=== PATIENT | male | born 1950 | race Caucasian/White ===

== ENCOUNTER → 2017-05-15 | Outpatient (CLI) | payer BC ==
[~2017-05-15] MED LIST: REGADENOSON 0.4 MG/5 ML SYRINGE ONE; THYR60TA PO
== END | disposition home or self-care (01) ==
LOC: CVU 07:18
PROVIDERS: ATTEND Internal Medicine Cardiovascular Disease
DX: I21.09 ST elevation (STEMI) myocardial infarction involving other coronary artery of anterior wall (principal); I21.19 ST elevation (STEMI) myocardial infarction involving other coronary artery of inferior wall; I25.10 Atherosclerotic heart disease of native coronary artery without angina pectoris; I25.89 Other forms of chronic ischemic heart disease
CPT/HCPCS: 78452; 93017; 93306; A9502; J2785

== ENCOUNTER → 2019-05-03 | Outpatient (CLI) | payer BC | END | disposition home or self-care (01) | LOC: CFH 12:17 | PROVIDERS: ATTEND Internal Medicine Cardiovascular Disease | DX: I25.10 Atherosclerotic heart disease of native coronary artery without angina pectoris (principal); R29.898 Other symptoms and signs involving the musculoskeletal system | CPT/HCPCS: 78452; 93017; A9502; J2785 ==

== ENCOUNTER 2019-05-22 00:01 | Observation (INO) | payer BC ==
[~2019-05-22] VITALS: Ht 177.8 cm; Wt 97.8 kg
[~2019-05-22 00:01] MED LIST changes: -REGADENOSON 0.4 MG/5 ML SYRINGE ONE
--- NOTE | 2019-05-22 00:12 | NUR ---
PT PROVIDED UA CUP, REFUSED UA AT THIS TIME.
[2019-05-22 00:23] LABS: BASOPHILS # (AUTO) 0.03 x10^3/uL (0-0.1); BASOPHILS % (AUTO) 1 % (0-1); EOSINOPHILS # (AUTO) 0.09 x10^3/uL (0-0.4); EOSINOPHILS % (AUTO) 1 % (1-7); LYMPHOCYTES # (AUTO) 1.47 x10^3/uL (1-3.4); LYMPHOCYTES % (AUTO) 23 % (22-44); MD NO; MEAN CORPUSCULAR HEMOGLOBIN 33.2 pg (27.5-34.5); MEAN CORPUSCULAR HGB CONC 33.7 g/dL (33.2-36.2); MEAN CORPUSCULAR VOLUME 98.5 fL (81-97); MEAN PLATELET VOLUME 7.8 fL (7.4-10.4); MONOCYTES # (AUTO) 0.66 x10^3/uL (0.2-0.8); MONOCYTES % (AUTO) 10 % (2-9); NEUTROPHILS # (AUTO) 4.21 x10^3/uL (1.8-6.8); NEUTROPHILS % (AUTO) 65 % (42-75); PLATELET COUNT 237 x10^3/uL (130-400); RED BLOOD COUNT 3.94 x10^6/uL (4.38-5.82); RED CELL DISTRIBUTION WIDTH 14.4 % (9.4-14.8)
[2019-05-22 00:34] LABS: ANION GAP 7 mmol/L (5-15); CALCIUM 8.6 mg/dL (8.5-10.1); CHLORIDE 109 mmol/L (98-107); CREATININE 1.38 mg/dL (0.7-1.3)
--- NOTE | 2019-05-22 00:34 | NUR ---
BREAK RN: REPORT GIVEN FROM JORDEN FOR BREAK. PT RESTING IN ROOM. TECH IN ROOM DOING EKG. VS STABLE. CMM INSPECTOR ON. SINUS YASSINE NOTED. CALL LIGHT IN PLACE. WILL CONTINUE TO MONITOR.
[2019-05-22 00:35] LABS: ALANINE AMINOTRANSFERASE 73 U/L (12-78); ALBUMIN 3.3 g/dL (3.4-5.0)
[2019-05-22 00:39] LABS: ALKALINE PHOSPHATASE 107 U/L (45-117); BILIRUBIN,TOTAL 0.5 mg/dL (0.2-1.0); TOTAL PROTEIN 6.8 g/dL (6.4-8.2); TROPONIN I < 0.015 ng/mL (0.000-0.045)
[2019-05-22] MEDS ORDERED: MORPHINE SULFATE 4 MG/ML, 1ML ONE (00:59)
[2019-05-22] MEDS ORDERED: MORPHINE SULFATE 4 MG/ML, 1ML IVPush PRN ×2 (01:00→02:00)
--- NOTE | 2019-05-22 01:14 | NUR ---
REPORT GIVEN TO NICK LEONARDO
[2019-05-22] MEDS ORDERED: ASPIRIN 81 MG TABLET CHEW ONE (01:54)
[2019-05-22] MEDS ORDERED: ACETAMINOPHEN 325 MG TABLET PO PRN (02:00)
[2019-05-22] MEDS ORDERED: ASPIRIN 81 MG TABLET CHEW PO ONE (02:00)
[2019-05-22] MEDS ORDERED: OXYcodone IR 5MG TABLET PO PRN (02:00)
[2019-05-22] MEDS ORDERED: LABETALOL 5MG/ML, 20ML IVPush PRN (02:00)
[2019-05-22] MEDS ORDERED: BISACODYL 10 MG SUPP PR PRN (02:00)
[2019-05-22] MEDS ORDERED: POLYETHYLENE GLYCOL 17 GM PACKET PO PRN (02:00)
[2019-05-22] MEDS ORDERED: ENALAPRILAT 1.25 MG/ML, 2ML IVPush PRN (02:00)
[2019-05-22] MEDS ORDERED: ONDANSETRON 2MG/ML, 2ML IVPush PRN (02:00)
[2019-05-22 02:44] VITALS: BP 165/93
[2019-05-22] MEDS: SIMETHICONE 80 MG CHEW TAB PO SCH ×5 (03:13→20:16)
[2019-05-22] MEDS: ENOXAPARIN 40 MG/0.4 ML SQ SCH (03:13)
[2019-05-22 03:50] LABS: MICROSCOPIC INDICATED
[2019-05-22 03:58] LABS: CULTURE INDICATED? NO
[2019-05-22 06:12] LABS: TROPONIN I < 0.015 ng/mL (0.000-0.045)
[2019-05-22 07:09] VITALS: BP 156/94
[2019-05-22] MEDS: THYROID 30 MG TABLET PO SCH (08:22)
[2019-05-22] MEDS: PANTOPROZOLE 40MG TABLET PO SCH (08:22)
[2019-05-22] MEDS: SENNA/DOCUSATE TABLET PO SCH (08:23)
[2019-05-22] MEDS ORDERED: THYROID 30 MG TABLET PO ONE (08:30)
[2019-05-22] MEDS: SODIUM CHLORIDE 0.9% 1,000 ML IV SCH (11:39)
[2019-05-22 13:07] VITALS: BP 153/84
[2019-05-22 20:17] VITALS: BP 159/88
[2019-05-23] MEDS: SODIUM CHLORIDE 0.9% 1,000 ML IV SCH (00:48)
[2019-05-23 00:51] VITALS: BP 129/81
[2019-05-23] MEDS: ENOXAPARIN 40 MG/0.4 ML SQ SCH (02:31)
[2019-05-23 05:09] LABS: BASOPHILS # (AUTO) 0.03 x10^3/uL (0-0.1); BASOPHILS % (AUTO) 1 % (0-1); EOSINOPHILS # (AUTO) 0.22 x10^3/uL (0-0.4); EOSINOPHILS % (AUTO) 5 % (1-7); LYMPHOCYTES # (AUTO) 1.91 x10^3/uL (1-3.4); LYMPHOCYTES % (AUTO) 43 % (22-44); MD NO; MEAN CORPUSCULAR HEMOGLOBIN 32.9 pg (27.5-34.5); MEAN CORPUSCULAR HGB CONC 33.4 g/dL (33.2-36.2); MEAN CORPUSCULAR VOLUME 98.6 fL (81-97); MEAN PLATELET VOLUME 8.1 fL (7.4-10.4); MONOCYTES % (AUTO) 9 % (2-9); NEUTROPHILS # (AUTO) 1.85 x10^3/uL (1.8-6.8); NEUTROPHILS % (AUTO) 42 % (42-75); PLATELET COUNT 219 x10^3/uL (130-400); RED BLOOD COUNT 4.09 x10^6/uL (4.38-5.82); RED CELL DISTRIBUTION WIDTH 14.7 % (9.4-14.8)
[2019-05-23 05:19] LABS: CHLORIDE 111 mmol/L (98-107)
[2019-05-23 05:32] LABS: ALANINE AMINOTRANSFERASE 102 U/L (12-78); ALBUMIN 3.2 g/dL (3.4-5.0); ALKALINE PHOSPHATASE 121 U/L (45-117); ANION GAP 5 mmol/L (5-15); BILIRUBIN,TOTAL 0.6 mg/dL (0.2-1.0); CALCIUM 8.5 mg/dL (8.5-10.1); CREATININE 1.23 mg/dL (0.7-1.3); TOTAL PROTEIN 6.6 g/dL (6.4-8.2)
[2019-05-23 06:53] VITALS: BP 150/84
[2019-05-23] MEDS: PANTOPROZOLE 40MG TABLET PO SCH (07:30)
[2019-05-23] MEDS: THYROID 30 MG TABLET PO SCH (08:16)
[2019-05-23] MEDS: SIMETHICONE 80 MG CHEW TAB PO SCH ×2 (08:16→11:00)
[2019-05-23] MEDS: SENNA/DOCUSATE TABLET PO SCH (08:17)
[2019-05-23] MEDS ORDERED: NITROGLYCERIN 0.4 MG/SPRAY SL PRN (10:00)
[2019-05-23] MEDS ORDERED: MAALOX/HYOSCYAMINE/LIDOCAINE 45 ML BTL PO ONE (10:00)
[2019-05-23] MEDS ORDERED: ACETAMINOPHEN 325 MG TABLET PO PRN (10:00)
[2019-05-23] MEDS ORDERED: ASPIRIN 325 MG TABLET PO SCH (10:00)
[2019-05-23] MEDS ORDERED: SODIUM CHLORIDE 0.9% 1,000 ML IV SCH (11:30)
[2019-05-23 12:31] VITALS: BP 161/93
[2019-05-23] MEDS ORDERED: SIME80TA16 PO (14:08)
[2019-05-23] MEDS ORDERED: NITR0.4T41 SL (14:08)
[2019-05-23] MEDS ORDERED: ASPI81TA45 PO (14:08)
[2019-05-23] MEDS ORDERED: ATOR40TA78 PO (14:08)
[2019-05-23] MEDS ORDERED: ATORVASTATIN 40 MG TABLET PO SCH (21:00)
== END 2019-05-23 15:18 | disposition home or self-care (01) ==
LOC: ED 02:44 → EDIP 02:46 → INTOOBSV 02:46 → 5SO 02:48
PROVIDERS: ADMIT Internal Medicine; ATTEND Internal Medicine
DX: R07.89 Other chest pain (principal); I12.9 Hypertensive chronic kidney disease with stage 1 through stage 4 chronic kidney disease, or unspecified chronic kidney disease; N18.9 Chronic kidney disease, unspecified; I25.110 Atherosclerotic heart disease of native coronary artery with unstable angina pectoris; Z85.51 Personal history of malignant neoplasm of bladder; E23.0 Hypopituitarism; E03.9 Hypothyroidism, unspecified; E78.5 Hyperlipidemia, unspecified; R00.1 Bradycardia, unspecified; R94.31 Abnormal electrocardiogram [ECG] [EKG]; D35.2 Benign neoplasm of pituitary gland; N17.9 Acute kidney failure, unspecified; R74.0 Nonspecific elevation of levels of transaminase and lactic acid dehydrogenase [LDH]; G47.00 Insomnia, unspecified; E66.9 Obesity, unspecified; I25.2 Old myocardial infarction; Z85.46 Personal history of malignant neoplasm of prostate; Z87.442 Personal history of urinary calculi; Z95.5 Presence of coronary angioplasty implant and graft
CPT/HCPCS: 36415; 74022; 76700; 80053; 81001; 83690; 83735; 84100; 84443; 84484; 85025; 85379; 86704; 86706; 86708; 86803; 87340; 93005; 96372; 96374; 99285; G0378; J1650; J2270; J7030